=== PATIENT | female | born 1980 | race Hispanic/Latino ===

== ENCOUNTER 2022-03-15 00:48 | Emergency (ER) | payer OTHER ==
[~2022-03-15] VITALS: Ht 157.5 cm; Wt 73.5 kg
[2022-03-15] MEDS ORDERED: ONDANSETRON HCL INJ 2MG/ML 2ML 2 MG/ML VIAL IV STA (01:35)
[2022-03-15] MEDS ORDERED: KETOROLAC TROMETHAMINE 30 MG/ML VIAL IV STA (01:35)
[2022-03-15] MEDS ORDERED: FAMOTIDINE 20 MG/2 ML VIAL IV STA (01:35)
[2022-03-15] MEDS ORDERED: SODIUM CHLORIDE 0.9% 1000ML 1,000 ML IV ONE (01:45)
[2022-03-15] MEDS ORDERED: ONDANSETRON HCL INJ 2MG/ML 2ML 2 MG/ML VIAL ONE (02:01)
[2022-03-15] MEDS ORDERED: SODIUM CHLORIDE 0.9% 1000ML 1,000 ML ONE (02:01)
[2022-03-15] MEDS ORDERED: KETOROLAC TROMETHAMINE 30 MG/ML VIAL ONE (02:01)
[2022-03-15] MEDS ORDERED: FAMOTIDINE 20 MG/2 ML VIAL IV ONE (02:02)
[2022-03-15] MEDS ORDERED: IOPAMIDOL 370 MG/ML 100 ML INFUS..BTL INJ ONE (02:07)
[2022-03-15] MEDS ORDERED: ONDANSETRON ODT4 MG PO (02:59)
[2022-03-15] MEDS ORDERED: KETOROLAC TROME10 MG PO (03:01)
[2022-03-15 03:05] VITALS: BP 126/78
== END 2022-03-15 03:16 | disposition home or self-care (01) ==
LOC: FSED 00:59
DX: R10.11 Right upper quadrant pain (principal); K80.80 Other cholelithiasis without obstruction; R11.2 Nausea with vomiting, unspecified
CPT/HCPCS: 74177; 80048; 80076; 81003; 81025; 85025; 96374; 96375; 96376; 99283; J1885; J2405; J7030; Q9967

== ENCOUNTER 2023-05-19 11:19 | Emergency (ER) | payer OTHER ==
[~2023-05-19] VITALS: Ht 157.5 cm; Wt 73.5 kg
[~2023-05-19 11:19] MED LIST: KETOROLAC TROME10 MG PO; ONDANSETRON ODT4 MG PO
[2023-05-19 11:32] VITALS: O2SAT 98
[2023-05-19] MEDS ORDERED: CYCLOBENZAPRINE10 MG PO (11:40)
[2023-05-19] MEDS ORDERED: IBUPROFEN 600 MG TAB PO STA (11:41)
[2023-05-19] MEDS ORDERED: IBUPROFEN600 MG PO (11:43)
[2023-05-19] MEDS ORDERED: CYCLOBENZAPRINE HCL 10 MG TAB PO ONE (11:45)
== END 2023-05-19 12:04 | disposition home or self-care (01) ==
LOC: FSED 11:31
DX: S00.83XA Contusion of other part of head, initial encounter (principal); M54.2 Cervicalgia; M25.512 Pain in left shoulder; V43.52XA Car driver injured in collision with other type car in traffic accident, initial encounter; Y92.488 Other paved roadways as the place of occurrence of the external cause
CPT/HCPCS: 99282